=== PATIENT | male | born 1980 | race Two or more races ===

== ENCOUNTER 2022-07-11 18:31 | Emergency (ER) | payer BC, OTHER ==
[~2022-07-11] VITALS: Ht 175.3 cm; Wt 95.5 kg
[2022-07-11] MEDS ORDERED: MECLIZINE HCL 25 MG TAB PO ONE (19:30)
[2022-07-11] MEDS ORDERED: ONDANSETRON ODT 4 MG TAB PO ONE (19:30)
[2022-07-11 19:48] LABS: Basophils # (auto) 0 10 ^3/uL (0-0.2); Basophils % (auto) 0.3 % (0.0-2.0); Eosinophils # (auto) 0 10 ^3/uL (0-0.8); Eosinophils % (auto) 0.1 % (0.0-7.0); Hematocrit 47.8 % (41.0-53.0); Hemoglobin 16.2 g/dL (13.5-17.5); Lymphocytes # (auto) 1.3 10 ^3/uL (0.4-5.4); Lymphocytes % (auto) 9.6 % (10.0-50.0); Mean Corpuscular Hgb Conc. 33.9 g/dL (32.0-36.0); Mean Corpuscular Volume 88.4 fL (80.0-100.0); Monocytes # (auto) 0.6 10 ^3/uL (0-1.3); Monocytes % (auto) 4.3 % (0.0-12.0); Neutrophils # (auto) 11.3 10 ^3/uL (1.6-8.6); Neutrophils % (auto) 85.7 % (37.0-80.0); Red Blood Cells 5.41 10^6/uL (4.5-5.90); Red Cell Distribution Width 12.8 % (11.8-14.3); White Blood Cell 13.2 10^3/uL (4.4-10.8)
[2022-07-11 20:09] LABS: Albumin 4.5 g/dL (3.4-5.0); Calcium 9.3 mg/dL (8.5-10.1); Potassium 3.6 mmol/L (3.5-5.1)
[2022-07-11 20:12] LABS: BUN/Creatinine Ratio 16.3; Bilirubin, Total 1.1 mg/dL (0.2-1.0); Total Protein 8.1 g/dL (6.4-8.2)
[2022-07-11] MEDS ORDERED: ONDA-144 PO (20:44)
[2022-07-11] MEDS ORDERED: MECL12.514 PO (20:44)
[2022-07-11 21:16] VITALS: BP 143/91
== END 2022-07-11 21:34 | disposition home or self-care (01) ==
LOC: ER 18:34
DX: H81.13 Benign paroxysmal vertigo, bilateral (principal); F12.10 Cannabis abuse, uncomplicated
CPT/HCPCS: 36415; 70450; 80053; 85025; 93005; 99285; J8597; Q0162